=== PATIENT | female | born 1965 | race Caucasian/White ===

== ENCOUNTER → 2018-02-10 | Outpatient (CLI) | payer OTHER | LOC: FIMAGING 11:36 | PROVIDERS: ATTEND Obstetrics & Gynecology | DX: Z12.31 Encounter for screening mammogram for malignant neoplasm of breast (principal); Z80.3 Family history of malignant neoplasm of breast ==

== ENCOUNTER 2018-05-15 16:42 | Emergency (ER) | payer OTHER ==
[2018-05-15] MEDS ORDERED: KETOROLAC 30 MG/1 ML SDV IVP ONE (17:11)
[2018-05-15] MEDS ORDERED: NS 1,000 ML IV ONE (17:11)
--- NOTE | 2018-05-15 17:15 | EDPHY ---
H & P Stated Complaint: Headache, nausea Time Seen by Provider: 05/15/18 16:56 HPI/ROS: CHIEF COMPLAINT: Headache, nausea, vision changes HISTORY OF PRESENT ILLNESS: Patient is a 53-year-old female who states that she started to have a low-grade headache this morning but felt little better after breakfast. She then noticed some flashing white lights in her right eye which resolved after about 10 min. Then about an hour later she developed a more intense headache. She went to her publicity writer who suspected that she was having low blood sugar. She went to the store and ate some potato chips but did not feel better. She then went to her primary doctor's office who could not see her so she went to the urgent care who checked her blood pressure was 140/70 and referred her here for high blood pressure and headache. She states that she throughout her life has had headaches that caused vomiting but they are rather infrequent. Usually after vomiting and taking a nap she feels better. She states that this is not the worst headache of her life. It was gradual in onset. No focal weakness or deficits. No trauma. No fever or infection. No neck pain. REVIEW OF SYSTEMS: Constitutional: denies: chills, fever, recent illness, recent injury EENTM: denies: blurred vision, double vision, nose congestion Respiratory: denies: cough, shortness of breath Cardiac: denies: chest pain, irregular heart rate, lightheadedness, palpitations Gastrointestinal/Abdominal: denies: abdominal pain, diarrhea, nausea, vomiting, blood streaked stools Genitourinary: denies: dysuria, frequency, hematuria, pain Musculoskeletal: denies: joint pain, muscle pain Skin: denies: lesions, rash, jaundice, bruising Neurological: See HPI denies: numbness, paresthesia, tingling, dizziness, weakness Hematologic/Lymphatic: denies: blood clots, easy bleeding, easy bruising Immunologic/allergic: denies: HIV/AIDS, transplant EXAM: GENERAL: Well-appearing, well-nourished and in no acute distress. HEAD: Atraumatic, normocephalic. EYES: Pupils equal round and reactive to light, extraocular movements intact, sclera anicteric, conjunctiva are normal. ENT: TMs normal, nares patent, oropharynx clear without exudates. Moist mucous membranes. Intra-ocular pressure measured at 17, no visible retinal detachment or hemorrhage. NECK: Normal range of motion, supple without lymphadenopathy or JVD. LUNGS: Breath sounds clear to auscultation bilaterally and equal. No wheezes rales or rhonchi. HEART: Regular rate and rhythm without murmurs, rubs or gallops. ABDOMEN: Soft, nontender, normoactive bowel sounds. No guarding, no rebound. No masses appreciated. BACK: No CVA tenderness, no spinal tenderness, step-offs or deformities EXTREMITIES: Normal range of motion, no pitting or edema. No clubbing or cyanosis. NEUROLOGICAL: Cranial nerves II through XII grossly intact. Normal speech, normal gait. 5/5 strength, normal movement in all extremities, normal sensation PSYCH: Normal mood, normal affect. SKIN: Warm, dry, normal turgor, no visible rashes or lesions. Source: Patient Exam Limitations: No limitations - Personal History LMP (Females 10-55): Post Menopausal Current Tetanus Diphtheria and Acellular Pertussis (TDAP): Yes - Medical/Surgical History Hx Asthma: No Hx Chronic Respiratory Disease: No Hx Diabetes: No Hx Cardiac Disease: No Hx Renal Disease: No Hx Cirrhosis: No Hx Alcoholism: No Hx HIV/AIDS: No Hx Splenectomy or Spleen Trauma: No Other PMH: Denies - Family History Significant Family History: No pertinent family hx - Social History Smoking Status: Never smoked Alcohol Use: None Constitutional: Initial Vital Signs Temperature (C) 36.5 C 05/15/18 16:50 Heart Rate 81 05/15/18 16:50 Respiratory Rate 16 05/15/18 16:50 Blood Pressure 155/86 H 05/15/18 16:50 O2 Sat (%) 96 05/15/18 16:50 O2 Delivery Mode Room Air Allergies/Adverse Reactions: acetaminophen [From Vicodin] Allergy (Verified 05/15/18 16:54) ciprofloxacin [From Cipro] Allergy (Verified 05/15/18 16:54) hydrocodone [From Vicodin] Allergy (Verified 05/15/18 16:54) Penicillins Allergy (Verified 05/15/18 16:54) Medical Decision Making ED Course/Re-evaluation: 6:[address] scan of front but the patient declined. Partially she states she does not want to know because her daughter was diagnosed with a brain tumor and . She is now feeling completely better after hydration and Toradol. We again discussed the risks and benefits of CT scanning further workup. She again declines. Her family is with her and agrees. They are eager to take her home. We discussed indications for returning. Differential Diagnosis: Partial list of the Differential diagnosis considered include but were not limited to; migraine, tension headache, glaucoma and although unlikely based on the history and physical exam, I also considered intracranial hemorrhage, trauma, infection, tumor. I discussed these differential diagnoses and the plan with the patient as well as the usual and expected course. The patient understands that the diagnosis is provisional and that in medicine we are not always correct and that further workup is often warranted. Usual and customary warnings were given. All of the patient's questions were answered. The patient was instructed to return to the emergency department should the symptoms at all worsen or return, otherwise to followup with the physician as we discussed. - Data Points Laboratory Results: Laboratory Results 05/15/18 17:20 05/15/18 17:20 05/15/18 05/15/18 05/15/18 17:20 17:20 17:20 WBC 6.94 10^3/uL 10^3/uL (3.80-9.50) RBC 4.25 10^6/uL 10^6/uL (4.18-5.33) Hgb 13.3 g/dL g/dL (12.6-16.3) Hct 38.0 % % (38.0-47.0) MCV 89.4 fL fL (81.5-99.8) MCH 31.3 pg pg (27.9-34.1) MCHC 35.0 g/dL g/dL (32.4-36.7) RDW 12.3 % % (11.5-15.2) Plt Count 218 10^3/uL 10^3/uL (150-400) MPV 9.0 fL fL (8.7-11.7) Neut % (Auto) 80.5 % H % (39.3-74.2) Lymph % (Auto) 12.7 % L % (15.0-45.0) [place] % (Auto) 5.6 % % (4.5-13.0) Eos % (Auto) 0.6 % % (0.6-7.6) Baso % (Auto) 0.3 % % (0.3-1.7) Nucleat RBC Rel Count 0.0 % % (0.0-0.2) Absolute Neuts (auto) 5.59 10^3/uL 10^3/uL (1.70-6.50) Absolute Lymphs (auto) 0.88 10^3/uL L 10^3/uL (1.00-3.00) Absolute Monos (auto) 0.39 10^3/uL 10^3/uL (0.30-0.80) Absolute Eos (auto) 0.04 10^3/uL 10^3/uL (0.03-0.40) Absolute Basos (auto) 0.02 10^3/uL 10^3/uL (0.02-0.10) Absolute Nucleated RBC 0.00 10^3/uL 10^3/uL (0-0.01) Immature Gran % 0.3 % % (0.0-1.1) Immature Gran # 0.02 10^3/uL 10^3/uL (0.00-0.10) Sodium 130 mEq/L L mEq/L (135-145) Potassium 3.5 mEq/L mEq/L (3.3-5.0) Chloride 93 mEq/L L mEq/L (97-110) Carbon Dioxide 26 mEq/l mEq/l (22-31) Anion Gap 11 mEq/L mEq/L (8-16) BUN 10 mg/dL mg/dL (7-23) Creatinine 0.6 mg/dL mg/dL (0.6-1.0) Estimated GFR > 60 Glucose 130 mg/dL H mg/dL (70-100) Calcium 9.8 mg/dL mg/dL (8.5-10.4) Magnesium 1.9 mg/dL mg/dL (1.6-2.3) Medications Given: Discontinued Medications Sodium Chloride (Ns) 1,000 mls @ 0 mls/hr IV ONCE ONE; Wide Open PRN Reason: Protocol Stop: 05/15/18 17:12 Last Admin: 05/15/18 17:21 Dose: 1,000 mls Ketorolac Tromethamine (Toradol) 15 mg IVP EDNOW ONE Stop: 05/15/18 17:12 Last Admin: 07/06/18 17:21 Dose: 15 mg Departure - Departure Disposition: Home, Routine, Self-Care Clinical Impression: Migraine headache with aura Qualifiers: Status migrainosus presence: with status migrainosus Intractability: not intractable Qualified Code(s): G43.101 - Migraine with aura, not intractable, with status migrainosus Condition: Fair Instructions: Migraine Headache (ED) Referrals: Tito Blair MD [Primary Care Provider] - As per Instructions
[2018-05-15 17:31] LABS: PLATELET COUNT 218 10^3/uL (150-400)
[2018-05-15 19:16] VITALS: BP 149/84
== END 2018-05-15 19:15 | disposition home or self-care (01) ==
DX: G43.101 Migraine with aura, not intractable, with status migrainosus (principal); E86.9 Volume depletion, unspecified
CPT/HCPCS: 96374; J1885